=== PATIENT | male | born 1935 | race Caucasian/White ===

== ENCOUNTER 2018-09-05 06:29 | Day surgery (SDC) | payer MEDICARE ==
[~2018-09-05] VITALS: Ht 172.7 cm; Wt 69.5 kg
[2018-09-05] MEDS ORDERED: SODIUM CHLORIDE 0.9% 1,000 ML IV SCH (06:50)
[2018-09-05 06:54] VITALS: BP 144/79
[2018-09-05] MEDS ORDERED: FINA5TAB PO (07:26)
[2018-09-05] MEDS ORDERED: CALC-680 PO (07:26)
[2018-09-05] MEDS ORDERED: APIX5TAB PO (07:26)
[2018-09-05] MEDS ORDERED: Iron PO (07:26)
[2018-09-05] MEDS ORDERED: CHOL100011 PO (07:26)
[2018-09-05] MEDS ORDERED: Potassium PO (07:26)
[2018-09-05] MEDS ORDERED: OMEG1CAP23 PO (07:26)
[2018-09-05] MEDS ORDERED: OLME1TAB22 PO (07:26)
[2018-09-05] MEDS ORDERED: Magnesium PO (07:26)
[2018-09-05] MEDS ORDERED: [UNRECOGNIZED DRUG - OTHER] PO (07:26)
[2018-09-05] MEDS ORDERED: AMLO10TA4 PO (07:26)
[2018-09-05] MEDS ORDERED: FOLI0.8T2 PO (07:26)
[2018-09-05] MEDS ORDERED: MULT1TAB13 PO (07:26)
[2018-09-05] MEDS ORDERED: LORA1TAB PO (07:35)
[2018-09-05] MEDS ORDERED: LIDOCAINE 2%, 20ML ONE (07:49)
[2018-09-05] MEDS ORDERED: MIDAZOLAM 1 MG/ML, 2ML ONE (07:59)
[2018-09-05] MEDS ORDERED: PROPOFOL 10 MG/ML, 20ML ONE (08:00)
[2018-09-05] MEDS ORDERED: ROCURONIUM 10MG/ML,5ML ONE (08:00)
[2018-09-05] MEDS ORDERED: FENTANYL PF 250 MCG/5ML ONE (08:00)
[2018-09-05] MEDS ORDERED: SUCCINYLCHOLINE 20 MG/ML, 10ML ONE (08:00)
[2018-09-05] MEDS ORDERED: DEXAMETHASONE 4 MG/ML, 1ML ONE ×2 (08:06→08:22)
[2018-09-05] MEDS ORDERED: ONDANSETRON 2MG/ML, 2ML ONE (08:22)
[2018-09-05] MEDS ORDERED: ISOPROTERENOL 0.2MG/ML, 5ML ONE (09:29)
[2018-09-05] MEDS ORDERED: LORazepam 1MG TABLET PO PRN (10:00)
[2018-09-05] MEDS ORDERED: LABETALOL 5MG/ML, 20ML IV PRN (10:30)
[2018-09-05] MEDS ORDERED: MORPHINE SULFATE 4 MG/ML, 1ML IVPush PRN (10:30)
[2018-09-05] MEDS ORDERED: PROMETHAZINE 25 MG/ML, 1ML IV PRN (10:30)
[2018-09-05] MEDS ORDERED: FENTANYL PF 100 MCG/2ML IV PRN (10:30)
[2018-09-05] MEDS ORDERED: MEPERIDINE/PF 25MG/0.5ML IVPush PRN (10:30)
[2018-09-05] MEDS ORDERED: OXYcodone 5 MG/5 ML ORAL.SOL UDC PO PRN (10:30)
[2018-09-05] MEDS ORDERED: EPHEDRINE 50 MG/ML, 1ML IVPush PRN (10:30)
[2018-09-05] MEDS ORDERED: MIDAZOLAM 1 MG/ML, 2ML IV PRN (10:30)
[2018-09-05] MEDS ORDERED: HYDROmorphone 2 MG/ML, 1ML IVPush PRN (10:30)
[2018-09-05] MEDS ORDERED: DIAZEPAM 5 MG/ML, 2ML IVPush PRN (10:30)
[2018-09-05] MEDS ORDERED: HALOPERIDOL 5 MG/ML IV PRN (10:30)
[2018-09-05] MEDS ORDERED: ACETAMINOPHEN 325 MG TABLET PO PRN (10:30)
[2018-09-05] MEDS ORDERED: ONDANSETRON ODT 8 MG PO PRN (10:30)
[2018-09-05] MEDS ORDERED: hydrALAzine 20 MG/ML, 1ML IV PRN (10:30)
[2018-09-05] MEDS ORDERED: ONDANSETRON 2MG/ML, 2ML IV PRN (10:30)
[2018-09-05] MEDS ORDERED: PROMETHAZINE 12.5 MG SUPP PR PRN (10:30)
[2018-09-05] MEDS ORDERED: ALBUTEROL SULFATE 2.5 MG/3 ML NPPB PRN (10:30)
[2018-09-05] MEDS ORDERED: APIXABAN 5 MG TABLET PO SCH (21:00)
[2018-09-06] MEDS ORDERED: FERROUS GLUCONATE 324 MG TABLET PO SCH (09:00)
[2018-09-06] MEDS ORDERED: HYDROCHLOROTHIAZIDE 12.5 MG CAPSULE PO SCH (09:00)
[2018-09-06] MEDS ORDERED: FOLIC ACID 1 MG TABLET PO SCH (09:00)
[2018-09-06] MEDS ORDERED: MULTIVITAMINS/MINERALS TABLET PO SCH (09:00)
[2018-09-06] MEDS ORDERED: CALCIUM CITRATE 950 MG TABLET PO SCH (09:00)
[2018-09-06] MEDS ORDERED: AMLODIPINE 10 MG TAB PO SCH (09:00)
[2018-09-06] MEDS ORDERED: CHOLECALCIFEROL 1,000 UNIT TABLET PO SCH (09:00)
[2018-09-06] MEDS ORDERED: MAGNESIUM OXIDE 400 MG TABLET PO SCH (09:00)
[2018-09-06] MEDS ORDERED: LOSARTAN 50MG TABLET PO SCH (09:00)
[2018-09-06] MEDS ORDERED: POTASSIUM CHLORIDE 10 MEQ TABLET.ER PO SCH (09:00)
[2018-09-06] MEDS ORDERED: FINASTERIDE 5 MG TABLET PO SCH (09:00)
[2018-09-06] MEDS ORDERED: [UNRECOGNIZED DRUG - OTHER] PO SCH (09:00)
[2018-09-06] MEDS ORDERED: OMEGA-3/FISH OIL CAPSULE PO SCH (09:00)
== END 2018-09-05 15:28 | disposition home or self-care (01) ==
LOC: CACL 06:29 → 5SO 11:39 → CACL 15:28
PROVIDERS: ATTEND Internal Medicine Cardiovascular Disease
DX: I48.92 Unspecified atrial flutter (principal); I47.1 Supraventricular tachycardia; I10 Essential (primary) hypertension; Z72.89 Other problems related to lifestyle; Z79.01 Long term (current) use of anticoagulants; Z79.899 Other long term (current) drug therapy
CPT/HCPCS: 93005; 93613; 93621; 93653; C1730; C1731; C1732; C1894; J0330; J1100; J2250; J2405; J2704; J3010; G0378

== ENCOUNTER 2020-08-09 14:11 | Emergency (ER) | payer MEDICARE ==
[~2020-08-09] VITALS: Ht 172.7 cm; Wt 72.7 kg
[~2020-08-09 14:11] MED LIST: AMLO10TA4 PO; APIX5TAB PO; CALC-680 PO; CHOL100011 PO; FINA5TAB PO; FOLI0.8T5 PO; Iron PO; LORA1TAB PO; MULT1TAB13 PO; Magnesium PO; OLME1TAB22 PO; OMEG1CAP23 PO; Potassium PO; [UNRECOGNIZED DRUG - OTHER] PO
[2020-08-09 14:17] VITALS: BP 182/91
--- NOTE | 2020-08-09 14:24 | NUR ---
EKG DONE IN TRIAGE. ER PA WAS IN TO SEE PT.
[2020-08-09 14:50] LABS: BASOPHILS % (AUTO) 1 % (0-1); EOSINOPHILS % (AUTO) 1 % (1-7); LYMPHOCYTES % (AUTO) 19 % (22-44); MD NO; MEAN CORPUSCULAR HEMOGLOBIN 32.7 pg (27.5-34.5); MEAN CORPUSCULAR HGB CONC 34.4 g/dL (33.2-36.2); MEAN PLATELET VOLUME 7.7 fL (7.4-10.4); MONOCYTES % (AUTO) 7 % (2-9); NEUTROPHILS % (AUTO) 73 % (42-75); PLATELET COUNT 244 x10^3/uL (130-400); RED BLOOD COUNT 5.02 x10^6/uL (4.38-5.82); RED CELL DISTRIBUTION WIDTH 13.1 % (9.4-14.8)
[2020-08-09 15:02] LABS: ALBUMIN 4.6 g/dL (3.4-5.0); ANION GAP 5 mmol/L (5-15); CALCIUM 9.4 mg/dL (8.5-10.1); CHLORIDE 106 mmol/L (98-107)
[2020-08-09 15:07] LABS: ALANINE AMINOTRANSFERASE 20 U/L (12-78); ALKALINE PHOSPHATASE 89 U/L (45-117); CREATININE 0.99 mg/dL (0.7-1.3); TROPONIN I < 0.015 ng/mL (0.000-0.045)
--- NOTE | 2020-08-09 15:25 | NUR ---
PT IS RESTING COMFORTABLY ON AN EW.R. GURNEY. I HAVE SPOKE WITH HE AND HIS IN REGARD TO HIS SYMPTOMS. WE REVIEWED THE RESULTS OF HIS DIAGNOSTICS, AND AM ANTICIPATING A RECHECK FROM AN ERP W D/C. I WILL CONTINUE TO MONITOR AND TREAT ORDERED, WELL PRN UNTIL TIME OF D/C.
--- NOTE | 2020-08-09 16:05 | NUR ---
MD IS AT THE BEDSIDE TO ASSESS
== END 2020-08-09 17:33 | disposition home or self-care (01) ==
LOC: ED 15:53
DX: S46.812A Strain of other muscles, fascia and tendons at shoulder and upper arm level, left arm, initial encounter (principal); R07.89 Other chest pain; I10 Essential (primary) hypertension; I44.0 Atrioventricular block, first degree; I48.91 Unspecified atrial fibrillation; K21.9 Gastro-esophageal reflux disease without esophagitis; X58.XXXA Exposure to other specified factors, initial encounter; Y93.89 Activity, other specified; Y92.89 Other specified places as the place of occurrence of the external cause; Y99.8 Other external cause status
CPT/HCPCS: 36415; 71045; 80053; 84484; 85025; 93005; 99285